=== PATIENT | female | born 1985 ===

== ENCOUNTER 2022-01-25 09:19 | Outpatient (CLI) | payer OTHER ==
[~2022-01-25 09:19] MED LIST: METOCLOPRAMIDE10 MG PO; NITROFURANTOIN100 GM MC; PRENATAL TABLE1 EAC1 PO; SYNTHROID PO
== END 2022-01-25 09:25 | disposition home or self-care (01) ==
LOC: RAD 09:19
PROVIDERS: ATTEND Orthopaedic Surgery
DX: Z76.89 Persons encountering health services in other specified circumstances (principal)

== ENCOUNTER 2022-01-30 08:48 | Outpatient (CLI) | payer OTHER | END 2022-01-30 08:49 | disposition home or self-care (01) | LOC: LAB 08:48 | PROVIDERS: ATTEND Orthopaedic Surgery | DX: D64.9 Anemia, unspecified (principal); E88.9 Metabolic disorder, unspecified; D68.8 Other specified coagulation defects; N39.0 Urinary tract infection, site not specified; A49.02 Methicillin resistant Staphylococcus aureus infection, unspecified site; E11.9 Type 2 diabetes mellitus without complications ==

== ENCOUNTER 2022-02-01 12:34 | Outpatient (CLI) | payer OTHER ==
[~2022-02-01] VITALS: Ht 157.5 cm; Wt 63.5 kg
== END 2022-02-01 12:41 | disposition home or self-care (01) ==
LOC: EKG 12:34
PROVIDERS: ATTEND Orthopaedic Surgery
DX: I49.9 Cardiac arrhythmia, unspecified (principal); I10 Essential (primary) hypertension

== ENCOUNTER 2022-02-23 11:35 | Outpatient (CLI) | payer OTHER | END 2022-02-23 11:37 | disposition home or self-care (01) | LOC: RAD 11:35 | DX: M76.72 Peroneal tendinitis, left leg (principal) ==